=== PATIENT | male | born 1990 | race African-American/Black ===

== ENCOUNTER 2024-03-27 18:57 | Emergency (ER) | payer OTHER ==
[2024-03-27 19:04] VITALS: BP 127/95; PULSE 116; RESP 18; BMI 43.2
== END 2024-03-27 20:56 | disposition home or self-care (01) ==
LOC: JER 18:57
DX: I10 Essential (primary) hypertension (principal)
CPT/HCPCS: 99283-25

== ENCOUNTER 2024-04-22 22:39 | Emergency (ER) | payer OTHER ==
[2024-04-22 22:46] VITALS: BP 115/84; PULSE 112; RESP 18; TEMP 98.5; BMI 35.1
[2024-04-22] MEDS ORDERED: FAMOTIDINE 20 MG/50 ML IVPB 20 MG/50 ML MG IVPB ONE (23:33)
[2024-04-22] MEDS ORDERED: ACETAMINOPHEN INJECTION 100 ML ONE (23:33)
[2024-04-22] MEDS ORDERED: MAG HYDROX/AL HYDROX/SIMETH 30 ML UNIT-DOSE CUP ONE (23:33)
[2024-04-22 23:51] LABS: BASO % 0.9 % (0-2.0); EOS % 2.3 % (0-4.5); HEMATOCRIT 42.1 % (35.4-49); LYMPH % 41.6 % (8-40); MCHC 33.4 g/dl (32.0-35.9); MEAN CELL VOLUME 77.8 fl (80-96); MEAN PLT VOLUME 8.4 fl (7.5-11.1); MONO % 9.3 % (3.8-10.2); NEUT % 45.9 % (42.8-82.8); PLATELET COUNT 239 10^3/uL (134-434); RBC 5.41 M/mm3 (4.00-5.60); RDW 14.9 % (11.9-15.9); WHITE BLOOD COUNT 9.4 K/mm3 (4.0-10.0)
[2024-04-22] MEDS: MAG HYDROX/AL HYDROX/SIMETH 30 ML UNIT-DOSE CUP PO ONE (23:52)
[2024-04-22] MEDS: FAMOTIDINE 20 MG/50 ML IVPB 20 MG/50 ML MG IVPB ONE (23:53)
[2024-04-22] MEDS: ACETAMINOPHEN 1000 MG/100 ML BAG IVPB ONE (23:53)
[2024-04-23 00:09] LABS: POTASSIUM 3.9 mmol/L (3.5-5.1)
[2024-04-23 00:11] LABS: BLOOD UREA NITROGEN 6.9 mg/dL (7-18); CALCIUM 9.4 mg/dL (8.5-10.1)
[2024-04-23 00:15] LABS: CREATININE 0.8 mg/dL (0.55-1.3)
[2024-04-23 00:16] LABS: BILIRUBIN,TOTAL 0.4 mg/dL (0.2-1); TOT PROT 7.4 g/dl (6.4-8.2)
[2024-04-23] MEDS ORDERED: FAMOTIDINE 20 MG TABLET ONE (00:29)
[2024-04-23] MEDS ORDERED: ACETAMINOPHEN 325 MG TABLET (FP) ONE (00:30)
[2024-04-23] MEDS: FAMOTIDINE 20 MG TABLET PO ONE (00:32)
[2024-04-23] MEDS: ACETAMINOPHEN 325 MG TABLET (FP) PO ONE (00:32)
== END 2024-04-23 00:46 | disposition home or self-care (01) ==
LOC: JER 22:39
DX: R07.2 Precordial pain (principal)
CPT/HCPCS: 36415; 71045-TC-FY; 80053; 84484; 85025; 93005; 93010; 99285-25